=== PATIENT | female | born 1960 | race Caucasian/White ===

== ENCOUNTER 2023-12-03 00:56 | Day surgery (SDC) | payer OTHER, SELFPAY ==
[2023-11-09 14:05] VITALS: BMI 20.1
[2023-12-03 07:21] VITALS: BP 114/79; PULSE 107; RESP 16; TEMP 36.6; O2SAT 97
[2023-12-03] MEDS: LACTATED RINGERS 1,000 ML 150 ML IV CONT (07:28)
--- NOTE | 2023-12-03 07:58 | P.PNAN_ITS ---
Anes - Initial Pre Proc Eval Procedure: Operation Date: 12/03/23 08:30 Proposed Procedures p Colonoscopy - Roni Arevalo MD Date/Time: 12/03/23 07:58 Surgeon: Roni Arevalo MD Pre Op Diagnosis: hx colon polyps Patient Data Age: 63 Gender: F Height: 1.6 m Weight: 46.1 kg Last Vital Signs Temp 97.9 F 12/03/23 07:21 Pulse 107 H 12/03/23 07:21 Resp 16 12/03/23 07:21 BP 114/79 12/03/23 07:21 Pulse Ox 97 12/03/23 07:21 O2 Del Method Room Air 12/03/23 07:21 Allergies Allergy/AdvReac Type Severity Reaction Status Date / Time No Known Allergies Allergy Verified 12/03/23 07:19 Home Medications Medication Instructions Recorded Confirmed Type eszopiclone 3 mg tablet (Lunesta) 3 mg PO HS 11/09/23 12/03/23 History multivitamin 1 tablet PO DAILY 11/09/23 12/03/23 History Patient hx anesthesia problems: none Family hx anesthesia problems: none Results Review: All pre-operative results and documents have been reviewed as part of the pre- operative evaluation. [facility], [facility] Family History Family History (Updated 06/19/16 @ 23:21 by DOCTOR UNKNOWN) Mother Depression Hypertension Asthma Patient's mother is in good health Grandparent Family history of glaucoma Hypertension Diabetes mellitus Father Patient's father is in good health Sibling Patient's sister is in good health Patient's brother is in good health Other Family history of learning disability Social History Social History Years smoked: 20 Smoking status: Current some day smoker Tobacco type: cigarettes Alcohol intake: current Alcohol use details: Rarely Substance use type: does not use Living arrangements: alone Anes - Eval Final PreProcedure Day of Procedure 12/03/23 07:58 Patient weight: normal Heart: regular rate and rhythm Lungs: clear to auscultation Airway: Mallampati scale class II Neurological: alert and oriented Last oral intake: >/= 8 hours ASA classification: II Emergent: no Anesthetic plan: proceed Anesthesia type and monitoring: general GIVS and standard monitoring Results Review: All pre-operative results and documents have been reviewed as part of the pre- operative evaluation. Informed Consent: The patient's anesthetic plan and its attendant risks and benefits were discussed with the patient/family/POA. Questions were solicited and answers provided to the satisfaction of the patient/family/POA.
--- NOTE | 2023-12-03 08:23 | PM.HPGS ---
History of Present Illness History of Present Illness Consent: Risks, benefits, and alternatives have been discussed and questions answered. Patient agrees to proceed with procedure. Chief complaint: hx colon polyps Narrative: Genevieve Galo is a 63 year old female with colon polyp 5 years ago Review of Systems Constitutional: Constitutional: Denies headache(s) and Denies weakness Eyes: Eyes: Denies blurry vision ENT: Reports Normal hearing present, Denies headache(s) and Denies neck pain Cardiovascular: Cardiovascular: Denies chest pain and Denies dyspnea Respiratory: Respiratory: Denies dyspnea Gastrointestinal: Gastrointestinal: Reports no additional gastrointestinal complaints Genitourinary: Genitourinary: Denies dysuria Musculoskeletal: Musculoskeletal: Denies neck pain Integumentary/Breasts: Skin/Breast: Denies dry skin Neurologic: Reports Normal hearing present, Denies headache(s) and Denies weakness Psychiatric: Psychiatric: Denies anxiety Endocrine: Endocrine: Denies change in body appearance Hematologic/Lymphatic: Hematologic/Lymphatic: Denies easy bleeding Allergic/Immunologic: Allergic/Immunologic: Denies urticaria PMF Past Medical History Medical History (Updated 12/03/23 @ 08:24 by Roni Arevalo MD) Colon polyp Family History Family History (Updated 06/19/16 @ 23:21 by DOCTOR UNKNOWN) Mother Depression Hypertension Asthma Patient's mother is in good health Grandparent Family history of glaucoma Hypertension Diabetes mellitus Father Patient's father is in good health Sibling Patient's sister is in good health Patient's brother is in good health Other Family history of learning disability Social History Social History Years smoked: 20 Smoking status: Current some day smoker Tobacco type: cigarettes Alcohol intake: current Alcohol use details: Rarely Substance use type: does not use Living arrangements: alone Meds Home Medications and Allergies Home Medications Medication Instructions Recorded Confirmed Type eszopiclone 3 mg tablet (Lunesta) 3 mg PO HS 11/09/23 12/03/23 History multivitamin 1 tablet PO DAILY 11/09/23 12/03/23 History Allergies Allergy/AdvReac Type Severity Reaction Status Date / Time No Known Allergies Allergy Verified 12/03/23 07:19 Vital Signs Vital Signs - 24 hr 12/03/23 07:21 Temperature 97.9 F Pulse Rate 107 H Respiratory Rate 16 Blood Pressure 114/79 Pulse Oximetry 97 Oxygen Delivery Room Air Exam Const: General: comfortable and no acute distress HENMT: Face/Nose/Sinus: Normal nares present Eyes: General: appearance normal, both eyes and all related structures Neck: Neck: no JVD Resp: Auscultation: clear to auscultation bilaterally Cardio: Rate: regular rate Rhythm: regular rhythm GI: Inspection: non-distended GI Palp: Yes Soft to palpation Skin: General skin exam: normal color Neuro: General: gait normal Speech: normal speech Extrem: General: normal to inspection Psych: Mental Status: mental status grossly normal Assessment and Plan Assessment and plan (1) Colon polyp: Code(s): K63.5 - Polyp of colon Status: Acute Assessment and Plan: colonoscopy
[2023-12-03 08:51] VITALS: BP 89/50; PULSE 76; RESP 25; O2SAT 99
[2023-12-03 09:01] VITALS: BP 101/62; PULSE 74; RESP 21; O2SAT 100
== END 2023-12-03 09:21 | disposition home or self-care (01) ==
PROVIDERS: PCP Nurse Practitioner; Visit Provider Internal Medicine Gastroenterology
PROC: 0DJD8ZZ Inspection of Lower Intestinal Tract, Via Natural or Artificial Opening Endoscopic (ICD-10-PCS; CPT 45378; principal; 2023-12-03 08:30)
DX: Z12.11 Encounter for screening for malignant neoplasm of colon (principal); D12.0 Benign neoplasm of cecum; K57.30 Diverticulosis of large intestine without perforation or abscess without bleeding; K64.8 Other hemorrhoids; F17.210 Nicotine dependence, cigarettes, uncomplicated
CPT/HCPCS: 45385; 88305; J2704; J7120